=== PATIENT | female | born 1975 | race Caucasian/White ===

== ENCOUNTER 2017-12-03 21:07 | Emergency (ER) | payer MEDICAID ==
[~2017-12-03] VITALS: Ht 162.6 cm; Wt 95.2 kg
[2017-12-03 22:06] VITALS: BP 123/76
== END 2017-12-03 22:06 | disposition home or self-care (01) ==
LOC: ER 21:08
DX: R25.1 Tremor, unspecified (principal); F17.200 Nicotine dependence, unspecified, uncomplicated; Z98.890 Other specified postprocedural states
CPT/HCPCS: 99281